=== PATIENT | female | born 1950 | race Caucasian/White ===

== ENCOUNTER 2016-10-30 15:22 | Inpatient (IN) | payer BC ==
[~2016-10-30] VITALS: Ht 162.6 cm; Wt 80.5 kg
[2016-10-30] VITALS (17 sets, daily range): BP systolic 97–240; BP diastolic 50–127; PULSE 48–81; RESP 16–20; TEMP 97.7–97.9; O2SAT 92–96
[2016-10-30] MEDS ORDERED: ASPIRIN 81 MG CHEW TAB PO ONE (16:15)
[2016-10-30] MEDS ORDERED: NITROGLYCERIN 2% OINT 1 GM PACKET TOP ONE (16:15)
[2016-10-30] MEDS ORDERED: SODIUM CHLORIDE 0.9% FLUSH 5 ML FLUSH IVF PRN (16:15)
--- NOTE | 2016-10-30 16:15 | PD ---
HPI Chief Complaint: Cardiac Complaint Time Seen by Provider: 16:10 Travel History International Travel<30 days: No Contact w/Intl Traveler<30days: No Traveled to known affect area: No History of Present Illness HPI 66-year-old female coming in with one week history of intermittent anterior chest discomfort and aching in both elbows which is coming on over the past 2 weeks. Patient denies relationship to exertion or food. Patient is noted to have very high blood pressure at this time. She denies headache, fever , cough, shortness of breath, but has had intermittent nausea but no vomiting or diarrhea. Patient has no cardiac history. Patient has taken blood pressure medications in the past but not for many years. Patient is visiting from [place]. Patient currently is pain free at time of exam. Patient still has her gallbladder, and has had some intermittent back pain in the last 24 hours. Patient has no known drug allergies. PFSH Past Medical History Cardiovascular Problems: Yes (HTN) Hypertension: Yes Tetanus Vaccination: > 5 Years Influenza Vaccination: No ?: Not Past Surgical History Other Surgery: Yes (melanoma removed to back) Social History Alcohol Use: No Tobacco Use: No Substance Use: No Allergies-Medications (Allergen,Severity, Reaction): Coded Allergies: No Known Allergies (Unverified , 10/30/16) Reported Meds & Prescriptions Reported Meds & Active Scripts Active No Active Prescriptions or Reported Medications Review of Systems Except as stated in HPI: all other systems reviewed are Neg General / Constitutional: No: Fever Eyes: No: Visual changes HENT: No: Headaches Cardiovascular: Positive: Chest Pain or Discomfort, No: Palpitations, Irregular Rhythm, Tachycardia, Diaphoresis, Syncope, Dyspnea on exertion (see history present illness.), Edema Respiratory: No: Cough, Shortness of Breath Gastrointestinal: Positive: Nausea, No: Vomiting, Diarrhea, Abdominal Pain Genitourinary: No: Dysuria Musculoskeletal: No: Pain Skin: No Rash Neurologic: No: Weakness Psychiatric: No: Depression Endocrine: No: Polydipsia Hematologic/Lymphatic: No: Easy Bruising Physical Exam Narrative GENERAL: Patient appears in no acute distress. She is talkative and pleasant. SKIN: Warm and dry. Normal color. Normal turgor. No diaphoresis. HEAD: Atraumatic. Normocephalic. EYES: Pupils equal and round. No scleral icterus. No injection or drainage. ENT: No nasal bleeding or discharge. Mucous membranes pink and moist. NECK: Trachea midline. No JVD. Neck is supple nontender. CARDIOVASCULAR: Regular rate and rhythm. No murmurs gallops or rubs appreciated. RESPIRATORY: No accessory muscle use. Clear to auscultation. Breath sounds equal bilaterally. GASTROINTESTINAL: Abdomen soft, non-tender, nondistended. Hepatic and splenic margins not palpable. MUSCULOSKELETAL: Extremities without clubbing, cyanosis, or edema. No obvious deformities. NEUROLOGICAL: Awake and alert. No obvious cranial nerve deficits. Motor grossly within normal limits. Five out of 5 muscle strength in the arms and legs. Normal speech. PSYCHIATRIC: Appropriate mood and affect; insight and judgment normal. Data Data Last Documented VS Vital Signs Date Time Temp Pulse Resp B/P Pulse Ox O2 Delivery O2 Flow Rate FiO2 10/30/16 18:00 60 19 198/75 95 Room Air 10/30/16 15:29 97.9 Orders Electrocardiogram (10/30/16 15:31) Complete Blood Count With Diff (10/30/16 15:31) Ckmb (Isoenzyme) Profile (10/30/16 15:31) Troponin I (10/30/16 15:31) Chest, Single Ap (10/30/16 15:31) Iv Access Insert/Monitor (10/30/16 15:31) Ecg Monitoring (10/30/16 15:31) Oxygen Administration (10/30/16 15:31) Oximetry (10/30/16 15:31) Bilateral Bp Monitoring (10/30/16 16:08) Aspirin Chew (Aspirin Chew) (10/30/16 16:15) Nitroglycerin 2% Oint (Nitroglycerin 2% (10/30/16 16:15) Sodium Chloride 0.9% Flush (Ns Flush) (10/30/16 16:15) Metoprolol Tartrate Inj (Lopressor Inj) (10/30/16 16:15) Comprehensive Metabolic Panel (10/30/16 16:10) Lipase (10/30/16 16:10) CKMB (10/30/16 16:10) CKMB% (10/30/16 16:10) Nitroglycerin-Dextrose Inj (Nitroglyceri (10/30/16 17:15) Potassium Chlor 20 Meq Premix (Kcl 20 Me (2/16/17 17:45) Admit Order (Ed Use Only) (10/30/16 18:01) Labs Laboratory Tests Test 10/30/16 16:10 White Blood Count 6.9 TH/MM3 Red Blood Count 5.10 MIL/MM3 Hemoglobin 12.5 GM/DL Hematocrit 38.4 % Mean Corpuscular Volume 75.4 FL Mean Corpuscular Hemoglobin 24.5 PG Mean Corpuscular Hemoglobin 32.6 % Concent Red Cell Distribution Width 16.3 % Platelet Count 210 TH/MM3 Mean Platelet Volume 10.3 FL Neutrophils (%) (Auto) 64.6 % Lymphocytes (%) (Auto) 24.0 % Monocytes (%) (Auto) 8.5 % Eosinophils (%) (Auto) 2.2 % Basophils (%) (Auto) 0.7 % Neutrophils # (Auto) 4.5 TH/MM3 Lymphocytes # (Auto) 1.7 TH/MM3 Monocytes # (Auto) 0.6 TH/MM3 Eosinophils # (Auto) 0.2 TH/MM3 Basophils # (Auto) 0.0 TH/MM3 CBC Comment AUTO DIFF Differential Comment AUTO DIFF CONFIRMED Platelet Estimate NORMAL Platelet Morphology Comment NORMAL Sodium Level 137 MEQ/L Potassium Level 3.2 MEQ/L Chloride Level 101 MEQ/L Carbon Dioxide Level 26.1 MEQ/L Anion Gap 10 MEQ/L Blood Urea Nitrogen 15 MG/DL Creatinine 0.87 MG/DL Estimat Glomerular Filtration 66 ML/MIN Rate Random Glucose 119 MG/DL Calcium Level 9.2 MG/DL Total Bilirubin 0.3 MG/DL Aspartate Amino Transf 20 U/L (AST/SGOT) Alanine Aminotransferase 24 U/L (ALT/SGPT) Alkaline Phosphatase 127 U/L Total Creatine Kinase 164 U/L Creatine Kinase MB 3.0 NG/ML Troponin I 0.27 NG/ML Total Protein 7.4 GM/DL Albumin 3.6 GM/DL Lipase 249 U/L [facility] Medical Decision Making Medical Screen Exam Complete: Yes Emergency Medical Condition: Yes Differential Diagnosis ACS. Atypical chest pain. Hypertensive crisis. Pancreatitis. Gallbladder disease. Narrative Course Patient is medically stable at time of exam. Patient's blood pressure is noted to be 234/127. EKG shows incomplete right branch bundle branch block, left ventricular hypertrophy, ST changes consistent with possible inferior myocardial infarction which appears old. This is reviewed with Dr. Shabazz. Labs ordered including CMP, CBC, cardiac labs per protocol, and lipase. IV access is obtained patient is given metoprolol 5 mg every 15 minutes 3. One-inch of 2% nitroglycerin paste is placed on the patient topically. 1 324 mg aspirin is given to the patient by mouth. Labs come back showing a normal CBC. CMP shows normal sodium, potassium 3.2, normal BUN/creatinine, random glucose is 119, alkaline phosphatase is elevated at 127. Patient is a positive troponin at 0.27. Lipase is unremarkable at 249. Patient is discussed with Dr. Porras, who sees the patient. She recommends no more metoprolol due to the patient's heart rate, and starting her on a nitroglycerin drip for her blood pressure which remains in the 200s over 100. The patient remains pain free at this time. 1715 hrs. call was placed to the hospitalist to discuss the patient. 1720 hrs. patient was discussed with Dr. Carter who recommended the patient be brought in under the metropolitan editor based on the patient's blood pressure readings and positive troponin. 1720 hrs. call was placed to the metropolitan editor to discuss the patient for admission. 1740 hrs. patient is on nitroglycerin drip, and blood pressure is 212/85. Pulse is 52 bpm. 1755 hrs. patient was discussed with Dr. Wang, the metropolitan editor who agreed to admit the patient to the ICU. She recommended calling the staff trainer to discuss the patient as well as well as a heparin drip. [address] Hill discussed the patient with Dr. Jones who recommended starting heparin drip and he would see the patient in the morning. Admission order was placed. Diagnosis Primary Impression: Elevated troponin level Additional Impression: Hypertension Qualified Code: I10 - Essential hypertension Admitting Information Admitting Physician Requests: Admit Scripts No Active Prescriptions or Reported Meds Condition: Stable Noé Mireles Oct 30, 2016 16:15
[2016-10-30] MEDS: METOPROLOL TARTRATE 5 MG/5 ML VIAL IVS SCH ×3 (16:16→16:38)
[2016-10-30 16:35] LABS: AUTOMATED NEUTROPHIL # 4.5 TH/MM3 (1.8-7.7); BASOPHIL % 0.7 % (0.0-2.0); EOSINOPHIL # 0.2 TH/MM3 (0-0.4); EOSINOPHIL % 2.2 % (0.0-4.0); HEMATOCRIT 38.4 % (35.0-46.0); LYMPHOCYTE # 1.7 TH/MM3 (1.0-4.8); MEAN CELL VOLUME 75.4 FL (80.0-100.0); MEAN CORPUSCULAR HEMOGLOBIN 24.5 PG (27.0-34.0); MEAN CORPUSCULAR HGB CONC 32.6 % (32.0-36.0); MONO % 8.5 % (0.0-8.0); NEUT % 64.6 % (16.0-70.0); PLATELET COUNT 210 TH/MM3 (150-450); RED CELL DISTRIBUTION WIDTH 16.3 % (11.6-17.2); WHITE BLOOD COUNT 6.9 TH/MM3 (4.0-11.0)
[2016-10-30 16:42] LABS: HEMO FLAGS AUTO DIFF
[2016-10-30 16:55] LABS: ANION GAP 10 MEQ/L (5-15); AST (GOT) 20 U/L (15-37); BICARBONATE 26.1 MEQ/L (21.0-32.0); BLOOD UREA NITROGEN 15 MG/DL (7-18); CHLORIDE 101 MEQ/L (98-107); GLOMERULAR FILTRATION RATE 66 ML/MIN (>89); POTASSIUM 3.2 MEQ/L (3.5-5.1); SODIUM (NA) 137 MEQ/L (136-145)
[2016-10-30 16:59] LABS: ALKALINE PHOSPHATASE 127 U/L (45-117); ALT (GPT) 24 U/L (10-53); CREATINE KINASE 164 U/L (26-192); TOTAL BILIRUBIN ADULT 0.3 MG/DL (0.2-1.0)
[2016-10-30 17:09] LABS: PLATELET ESTIMATE SMEAR NORMAL (NORMAL); PLATELET MORPHOLOGY NORMAL (NORMAL); SCAN/DIFF AUTO DIFF CONFIRMED
--- NOTE | 2016-10-30 17:10 | RADRPT ---
EXAM DATE/TIME: 10/30/2016 16:43 [facility] COMPARISON: No previous studies available for comparison. INDICATIONS : Chest pains for one week. MEDICAL HISTORY : Hypertension. SURGICAL HISTORY : None. ENCOUNTER: Initial ACUITY: 1 week PAIN SCORE: 6/10 LOCATION: Bilateral upper chest area. FINDINGS: A single view of the chest demonstrates cardiomegaly with minimal basilar opacity likely atelectasis and scarring. No significant effusion. No pneumothorax. Suspected hiatal hernia present. CONCLUSION: 1. Cardiomegaly with linear scarring or atelectasis at the lung bases. Hiatal hernia. Reginaldo Jones MD on October 30, 2016 at 17:07 Board Certified Radiologist. This report was verified electronically.
[2016-10-30] MEDS ORDERED: NITROGLYCERIN-DEXTROSE INJ 250 ML IV ONE (17:15)
[2016-10-30] MEDS ORDERED: POTASSIUM CHLOR 20 MEQ PREMIX 100 ML IV ONE (17:45)
[2016-10-30] MEDS ORDERED: HEPARIN-D5W INJ 250 ML IV SCH ×2 (18:15→21:15)
[2016-10-30 18:37] LABS: APTT (PATIENT) 25.1 SEC (24.3-30.1); PROTHROMBIN TIME - PATIENT 10.5 SEC (9.8-11.6)
--- NOTE | 2016-10-30 18:39 | PD ---
Physical Exam Date Seen by Provider: Oct 30, 2016 Time Seen by Provider: 17:30 Narrative I, Dr. Schultz, have reviewed the advance practice practitioner's documentation and am in agreement, met with the patient face to face, made the diagnosis, and the medical decision making was done by me. *My assessment and Findings: Patient seen and evaluated with PA, please see PA note for further details. She is a 66-year-old lady from [place], has history of hypertension but not compliant with blood pressure medications, and has been having intermittent chest pains for several weeks, but none currently. She is here because of intermittent chest pains. Her blood pressure is fairly elevated on initial evaluation with a systolic of 240 and a diastolic 110. She denies any other issues. GENERAL: Well-nourished, well-developed pleasant elderly white female patient in no acute distress. Awake and oriented 3. SKIN: Warm and dry. HEAD: Normocephalic. EYES: No scleral icterus. No injection or drainage. NECK: Supple, trachea midline. CARDIOVASCULAR: Regular rate and rhythm without murmurs, gallops, or rubs. Pulses are present and equal bilaterally. RESPIRATORY: Breath sounds equal bilaterally. No accessory muscle use. GASTROINTESTINAL: Abdomen soft, non-tender, nondistended. MUSCULOSKELETAL: No cyanosis, or edema. BACK: Nontender without obvious deformity. No CVA tenderness. EKG shows NSR, no ST elevation or depression, and no arrhythmias. T-wave inversions in 1 and aVL. Laboratory Tests Test 10/30/16 16:10 Mean Corpuscular Volume 75.4 FL (80.0-100.0) Mean Corpuscular Hemoglobin 24.5 PG (27.0-34.0) Monocytes (%) (Auto) 8.5 % (0.0-8.0) Potassium Level 3.2 MEQ/L (3.5-5.1) Estimat Glomerular Filtration 66 ML/MIN (>89) Rate Random Glucose 119 MG/DL (74-106) Alkaline Phosphatase 127 U/L (45-117) Troponin I 0.27 NG/ML (0.02-0.05) Last 24 hours Impressions Chest X-Ray 10/30/16 5421 Signed Impressions: Service Date/Time: October 16:43 - CONCLUSION: 1. Cardiomegaly with linear scarring or atelectasis at the lung bases. Hiatal hernia. Reginaldo Jones MD Chest x-rays unremarkable. Patient was initiated on metoprolol initially with mild improvement in blood pressure. Aspirin was given in the ER. Her troponins are elevated. And patient was placed on nitroglycerin drip for blood pressure. Heparin was added. Case was discussed with Dr. Wang for admission. She would like us to consult cardiology as well. Case was then discussed with Dr. Jones of cardiology for admission. He states that he will see the patient on consult tomorrow. Patient admitted to ICU. Aggregate critical care time was 25 minutes. Time to perform other separately billable procedures was not included in the critical care time. My time did not include minutes spent treating any other patients simultaneously or on activities that did not directly contribute to the patient's treatment. The services I provided to this patient were to treat and/or prevent clinically significant deterioration that could result in: Worsening hypertension, hypertensive emergency, acute CVA, ICH, I provided critical care services requiring my management, as noted below: Chart data review, documentation time, medication orders and management, vital sign assessments/reviewing monitor data, ordering and reviewing lab tests, ordering and interpreting/reviewing x-rays and diagnostic studies, care of the patient and discussion of the patient with the admitting physicians. Data Data Last Documented VS Vital Signs Date Time Temp Pulse Resp B/P Pulse Ox O2 Delivery O2 Flow Rate FiO2 10/30/16 18:00 60 19 198/75 95 Room Air 10/30/16 15:29 97.9 Orders Electrocardiogram (10/30/16 15:31) Complete Blood Count With Diff (10/30/16 15:31) Ckmb (Isoenzyme) Profile (10/30/16 15:31) Troponin I (10/30/16 15:31) Chest, Single Ap (10/30/16 15:31) Iv Access Insert/Monitor (10/30/16 15:31) Ecg Monitoring (10/30/16 15:31) Oxygen Administration (10/30/16 15:31) Oximetry (10/30/16 15:31) Bilateral Bp Monitoring (10/30/16 16:08) Aspirin Chew (Aspirin Chew) (10/30/16 16:15) Nitroglycerin 2% Oint (Nitroglycerin 2% (10/30/16 16:15) Sodium Chloride 0.9% Flush (Ns Flush) (10/30/16 16:15) Metoprolol Tartrate Inj (Lopressor Inj) (10/30/16 16:15) Comprehensive Metabolic Panel (10/30/16 16:10) Lipase (10/30/16 16:10) CKMB (10/30/16 16:10) CKMB% (10/30/16 16:10) Nitroglycerin-Dextrose Inj (Nitroglyceri (10/30/16 17:15) Potassium Chlor 20 Meq Premix (Kcl 20 Me (10/30/16 17:45) Admit Order (Ed Use Only) (10/30/16 18:01) Labs Laboratory Tests Test 10/30/16 16:10 White Blood Count 6.9 TH/MM3 Red Blood Count 5.10 MIL/MM3 Hemoglobin 12.5 GM/DL Hematocrit 38.4 % Mean Corpuscular Volume 75.4 FL Mean Corpuscular Hemoglobin 24.5 PG Mean Corpuscular Hemoglobin 32.6 % Concent Red Cell Distribution Width 16.3 % Platelet Count 210 TH/MM3 Mean Platelet Volume 10.3 FL Neutrophils (%) (Auto) 64.6 % Lymphocytes (%) (Auto) 24.0 % Monocytes (%) (Auto) 8.5 % Eosinophils (%) (Auto) 2.2 % Basophils (%) (Auto) 0.7 % Neutrophils # (Auto) 4.5 TH/MM3 Lymphocytes # (Auto) 1.7 TH/MM3 Monocytes # (Auto) 0.6 TH/MM3 Eosinophils # (Auto) 0.2 TH/MM3 Basophils # (Auto) 0.0 TH/MM3 CBC Comment AUTO DIFF Differential Comment AUTO DIFF CONFIRMED Platelet Estimate NORMAL Platelet Morphology Comment NORMAL Sodium Level 137 MEQ/L Potassium Level 3.2 MEQ/L Chloride Level 101 MEQ/L Carbon Dioxide Level 26.1 MEQ/L Anion Gap 10 MEQ/L Blood Urea Nitrogen 15 MG/DL Creatinine 0.87 MG/DL Estimat Glomerular Filtration 66 ML/MIN Rate Random Glucose 119 MG/DL Calcium Level 9.2 MG/DL Total Bilirubin 0.3 MG/DL Aspartate Amino Transf 20 U/L (AST/SGOT) Alanine Aminotransferase 24 U/L (ALT/SGPT) Alkaline Phosphatase 127 U/L Total Creatine Kinase 164 U/L Creatine Kinase MB 3.0 NG/ML Troponin I 0.27 NG/ML Total Protein 7.4 GM/DL Albumin 3.6 GM/DL Lipase 249 U/L [facility] Medical Record Reviewed: Yes Supervised Visit with VANDANA: Yes Differential Diagnosis ACS versus ST elevation SC versus non-ST elevation SC versus hypertensive emergency versus dysrhythmias versus acute renal failure Diagnosis Primary Impression: Elevated troponin level Additional Impression: Hypertension Qualified Code: I10 - Essential hypertension Admitting Information Admitting Physician Requests: Admit Scripts No Active Prescriptions or Reported Meds Condition: Stable Radha Schultz MD Oct 30, 2016 18:39
[2016-10-30] MEDS ORDERED: MAGNESIUM OXIDE 400 MG TAB PO PRN (19:15)
[2016-10-30] MEDS ORDERED: POTASSIUM CHLOR 40 MEQ PREMIX 100 ML IV PRN ×2 (19:15)
[2016-10-30] MEDS ORDERED: POTASSIUM PHOSPHATE MONOBASIC 500 MG TAB PO PRN (19:15)
[2016-10-30] MEDS ORDERED: POTASSIUM PHOSPHATE MONOBASIC 500 MG TAB PO/TUBE PRN (19:15)
[2016-10-30] MEDS ORDERED: SODIUM PHOSPHATE INJ 30 MMOL in SODIUM CHLOR 0.9% 250 ML INJ 240 ML IV PRN (19:15)
[2016-10-30] MEDS ORDERED: POTASSIUM CHLOR 20 MEQ PREMIX 100 ML IV PRN ×2 (19:15)
[2016-10-30] MEDS ORDERED: MAGNESIUM SULFATE INJ 4 GM in SODIUM CHLORIDE 0.9% INJ 92 ML IV PRN (19:15)
[2016-10-30] MEDS ORDERED: POTASSIUM CL 40 MEQ/30 ML LIQ UDC PO/TUBE PRN ×2 (19:15)
[2016-10-30] MEDS ORDERED: MAGNESIUM SULFATE INJ 2 GM in SODIUM CHLORIDE 0.9% INJ 96 ML IV PRN (19:15)
[2016-10-30] MEDS ORDERED: POTASSIUM PHOSPHATE INJ 30 MMOL in SODIUM CHLOR 0.9% 250 ML INJ 250 ML IV PRN (19:15)
--- NOTE | 2016-10-30 19:16 | HHI.HP ---
HPI Service Critical Care Medicine Primary Care Physician Unknown Admission Diagnosis Elevated Troponin/Typertnesive Crisis Diagnosis: Travel History International Travel<30 Days: No Contact w/Intl Traveler <30 Da: No Traveled to Known Affected Are: No History of Present Illness 66 yo female who is vacationing in [place] from [place]. She has a PMH history of hypertension but states that she discontinued meds on her own a few years ago. She presents to [facility] ED with chest pain that has been intermittent since 10/22/16 when she states she was laying down in a hotel room in [place] and felt pain in her chest, radiating to bilateral elbows and associated palpitations. She stated it felt better when she sat up. She denies any shortness of breath. She states this improved after she took some Advil. She has continued to have intermittent episodes of chest pain that got more severe last night and was 8/10 squeezing pain that radiated intrascapular and down to her left flank. She denies numbness, tingling, paresthesias, abdominal pain. She has had some occasional diaphoresis. She denies nausea or vomiting. She does not feel that symptoms are particularly exertional as she was able to walk up to the [facility] without symptoms. She has also been cycling without any increase symptoms, although she states she " takes it slower than usual". She felt like it may be getting worse with eating. She has tried taking advil and tums and thought that advil helped. She is a former smoker. States she has never had her cholesterol checked. She denies prior cardiac history stating that she has never had a stress test or cardiac catheterization. No family history of coronary artery disease. She reports prior history of heavy EtOH use. She was previously on a single agent antihypertensive (unknown med) but discontinued on her own a couple of years ago after she had lost some weight. She presents with BP 240/110 with heart rate 70s-80s. She was given Metoprolol 10 mg IV and heart rate was in high 40s to 50s. She was placed on Nitropaste. Currently denies chest pain. Troponin is 0.27 with negative MB fraction. EKG shows LVH, no ST elevation, incomplete RBBB. Past Family Social History Allergies: Coded Allergies: No Known Allergies (Unverified , 10/30/16) Past Medical History Hypertension Obesity History of Heavy alcohol use Former smoker She states she had a "whole body scan" in 2010 and was told "her heart was fine " she states she was told she had hepatomegaly She denies prior history of cardiac stress or cardiac catheter Past Surgical History She had a melanoma resection in 2009 Reported Medications Has been taking occasional Advil and Tums Family History Her mother is age 84 and is living without prior history of coronary disease. She does have a heart murmur Her father has no cardiac history Social History She has 2 children that were delivered vaginally She quit smoking when she was in her 30s She states she used to drink rather heavily for several years drinking about 4- 6 alcoholic beverages per day. She denies prior history of DVTs. States she hasn't had a drink in a few years She is She resides in [place] and she and her drove down here for vacation Physical Exam Vital Signs Vital Signs Date Time Temp Pulse Resp B/P Pulse Ox O2 Delivery O2 Flow Rate FiO2 10/30/16 18:30 53 20 182/74 94 Room Air 10/30/16 18:00 60 19 198/75 95 Room Air 10/30/16 17:30 59 212/85 10/30/16 17:00 58 19 210/85 94 Room Air 10/30/16 16:35 64 17 216/110 94 Room Air 10/30/16 16:06 70 96 Room Air 10/30/16 16:03 96 10/30/16 16:00 81 18 234/127 95 Room Air 10/30/16 15:55 77 18 240/110 96 Room Air 10/30/16 15:29 97.9 72 20 92 Room Air Physical Exam Pulse 52 blood pressure 97/50 sats 93% GENERAL: Well-nourished, well-developed patient who is alert and interactive in ED [facility]. SKIN: Warm and dry. HEAD: Atraumatic. Normocephalic. EYES: Pupils equal and round, 2 mm reactive. No scleral icterus. ENT: No nasal bleeding or discharge. Mucous membranes pink and moist. NECK: Trachea midline. No JVD. CARDIOVASCULAR: , sinus rhythm on the monitor with rate in the 50-60s. No murmurs rubs or gallops. RESPIRATORY: Breathing comfortably without accessory muscle use. Clear to auscultation bilaterally. No wheezes Rales or rhonchi. GASTROINTESTINAL: Abdomen soft, non-tender, nondistended. Bowel sounds present MUSCULOSKELETAL: Extremities without clubbing, cyanosis, or edema. She has palpable bounding pulses in all extremities. Extremities are warm NEUROLOGICAL: Awake and alert. No obvious cranial nerve deficits. Normal speech. Oriented 3. Strength 5 out of 5 in all extremities. Laboratory Laboratory Tests Test 10/30/16 10/30/16 16:10 16:30 White Blood Count 6.9 Red Blood Count 5.10 Hemoglobin 12.5 Hematocrit 38.4 Mean Corpuscular Volume 75.4 Mean Corpuscular Hemoglobin 24.5 Mean Corpuscular Hemoglobin 32.6 Concent Red Cell Distribution Width 16.3 Platelet Count 210 Mean Platelet Volume 10.3 Neutrophils (%) (Auto) 64.6 Lymphocytes (%) (Auto) 24.0 Monocytes (%) (Auto) 8.5 Eosinophils (%) (Auto) 2.2 Basophils (%) (Auto) 0.7 Neutrophils # (Auto) 4.5 Lymphocytes # (Auto) 1.7 Monocytes # (Auto) 0.6 Eosinophils # (Auto) 0.2 Basophils # (Auto) 0.0 CBC Comment AUTO DIFF Differential Comment AUTO DIFF CONFIRMED Platelet Estimate NORMAL Platelet Morphology Comment NORMAL Sodium Level 137 Potassium Level 3.2 Chloride Level 101 Carbon Dioxide Level 26.1 Anion Gap 10 Blood Urea Nitrogen 15 Creatinine 0.87 Estimat Glomerular Filtration 66 Rate Random Glucose 119 Calcium Level 9.2 Total Bilirubin 0.3 Aspartate Amino Transf 20 (AST/SGOT) Alanine Aminotransferase 24 (ALT/SGPT) Alkaline Phosphatase 127 Total Creatine Kinase 164 Creatine Kinase MB 3.0 Troponin I 0.27 Total Protein 7.4 Albumin 3.6 Lipase 249 Prothrombin Time 10.5 Prothromb Time International 1.0 Ratio Activated Partial 25.1 Thromboplast Time Result Diagram: 10/30/16 1610 10/30/16 1610 Assessment and Plan Assessment and Plan NEURO: History of heavy alcohol use She denies any EtOH use in several years. Morphine prn pain RESP: Former history of tobacco abuse Nasal cannula if needed to maintain sats greater than 92% Albuterol every 2 hours when necessary wheezing CV: Malignant hypertension Elevated troponin Chest pain Chest pain and troponin elevation likely related to hypertensive urgency. Metoprolol 5 mg IV q6 hours with hold orders for heart rate <60. NTG drip to target BP 140/90 provided that UOP remains adequate. Serial cardiac markers and EKG. Follow-up Echo. She has received aspirin. Check lipid profile. Pravastatin 20 mg po daily in morning. Followup CTA to r/o dissection given 8/10 pain radiating to back and flank; as well as nonexertional symptoms. Start heparin if CTA negative. Cardiology consulted, Dr. Jones to see. GI: Hiatal hernia H/o hepatomegaly Nothing by mouth until cardiology plan determined. Protonix 40 mg IV daily FEN/RENAL: Hypokalemia Monitor intake and output while aggressively lowering BP to ensure maintains UOP. Monitor electrolytes and replace electrolytes as indicated per ICU electrolyte replacement protocol. Replace potassium. ID: UTI U/a with large LE, rare bacteria, 25 WBC. Start levaquin and followup urine culture/sensitivity HEME: h/o melanoma resection from back in 2009 No acute heme/onc issues. Monitor CBC ENDO: Check hemoglobin A1c and TSH PROPH: SCDs for DVT prophylaxis. Initiate heparin if CT angiogram is negative for evidence of dissection. Protonix 40 month grams IV daily for stress ulcer prophylaxis ACCESS: Peripheral IV providing adequate access at this time Patient and her were updated at bedside. CCT 55 minutes exclusive of separately billable procedures Leticia Riley MD Oct 30, 2016 19:16
[2016-10-30] MEDS ORDERED: NITROGLYCERIN-DEXTROSE INJ 250 ML IV SCH (19:45)
[2016-10-30] MEDS ORDERED: IOHEXOL 350 MG/ML 10 ML VIAL (for RAD DIAG) IV ONE (19:59)
[2016-10-30] MEDS ORDERED: CHLORHEXIDINE GLUCONATE 2 % 1 PACK (2 CLOTHS) TOP PRN (20:00)
[2016-10-30] MEDS ORDERED: RESP: ALBUTEROL 2.5 MG/3 ML NEB (PRN) INH (20:00)
[2016-10-30] MEDS ORDERED: MISCELLANEOUS NURSING INFORMATION XX SCH (20:00)
[2016-10-30] MEDS ORDERED: ONDANSETRON HCL 4 MG/2 ML VIAL IV PRN (20:00)
[2016-10-30] MEDS ORDERED: SODIUM CHLORIDE 0.9% FLUSH 5 ML FLUSH IV FLUSH PRN (20:00)
[2016-10-30] MEDS ORDERED: ACETAMINOPHEN 325 MG TAB PO PRN (20:00)
[2016-10-30] MEDS ORDERED: MORPHINE SULFATE 4 MG/ML INJ IV PUSH PRN ×2 (20:15)
[2016-10-30 20:16] LABS: BACTERIA, URINE RARE /hpf; BLOOD, URINE NEG (NEG); GLUCOSE,URINE NEG (NEG); HYALINE CAST, URINE 2 /lpf (RARE); KETONE, URINE NEG (NEG); MUCUS URINE FEW /lpf (OCC); NITRITE,URINE NEG (NEG); PH, URINE 6.5 (5.0-8.5); SQUAMOUS EPITHELIAL CELL URINE 1 /hpf (0-5); URINE COLOR LIGHT-YELLOW (YELLW/STRAW)
[2016-10-30] MEDS: SODIUM CHLORIDE 0.9% FLUSH 5 ML FLUSH IV FLUSH SCH (20:16)
[2016-10-30 20:20] LABS: AMPHETAMINE, URINE NEG (NEG); BARBITURATES, URINE NEG (NEG); COCAINE, URINE NEG (NEG)
[2016-10-30 20:21] LABS: COMMENT (UR) CATH-CULTURE IND; CULTURE IF INDICATED CATH CULTURE IND
[2016-10-30] MEDS: PANTOPRAZOLE SODIUM 40 MG VIAL IV PUSH SCH (20:39)
--- NOTE | 2016-10-30 20:42 | RADRPT ---
EXAM DATE/TIME: 10/30/2016 20:09 [place] COMPARISON: No previous studies available for comparison. INDICATIONS : Intermittent chest discomfort for 2 weeks; evaluate for aortic dissection. IV CONTRAST: 100 cc Omnipaque 350 (iohexol) IV RADIATION DOSE: 17.06 CTDIvol (mGy) MEDICAL HISTORY : Hypertension. SURGICAL HISTORY : None. ENCOUNTER: Initial ACUITY: 2 weeks PAIN SCALE: 3/10 LOCATION: Chest TECHNIQUE: Volumetric scanning was performed using a multi-row detector CT scanner. The data was post processed with a variety of visualization algorithms including full volume maximum intensity pr ojection, multi-planar sliding thin slab reformation, curved planar reformation, and surface renderin g techniques. Using automated exposure control and adjustment of the mA and/or kV according to patie nt size, radiation dose was kept as low as reasonably achievable to obtain optimal diagnostic quality images. FINDINGS: The aorta is intact. There is no dissection. Calcifications are seen at the coronary a rteries. There are scattered calcifications seen throughout the arterial system. No aneurysm is pre sent. There is Bochdalek type hernia seen at the posterior right hemidiaphragm. This is typically an incide ntal finding. There is some mild accompanying atelectasis or consolidation at the right lung base. There is a large hiatal hernia. The liver, spleen, pancreas, adrenal glands and kidneys are grossly normal. There is a 4.9 cm peripherally calcified mass in the right pelvis likely related to a calci fied leiomyoma of the uterus. CONCLUSION: 1. The aorta is intact. Atherosclerotic calcifications are seen throughout the arterial system inclu ding the coronary arteries. 2. 4.9 cm peripherally calcified mass in the right pelvis likely related to a calcified leiomyoma of the uterus. 3. Area of suspected atelectasis or consolidation at the right lung base adjacent to a Bochdalek type hernia. Hi Hong MD on October 30, 2016 at 20:27 Board Certified Radiologist. This report was verified electronically.
[2016-10-30] MEDS: METOPROLOL TARTRATE 5 MG/5 ML VIAL IV PUSH SCH (21:00)
[2016-10-30] MEDS ORDERED: HEPARIN SODIUM - IV 10,000 UNITS/10 ML VIAL IV ONE (21:15)
[2016-10-30] MEDS: LEVOFLOXACIN 750 MG PREMIX INJ 150 ML IV SCH (23:40)
[2016-10-31] VITALS (12 sets, daily range): BP systolic 143–223; BP diastolic 67–98; PULSE 57–83; RESP 10–21; TEMP 97.4–98.2; O2SAT 92–96
[2016-10-31] MEDS ORDERED: HEPARIN SODIUM - IV 10,000 UNITS/10 ML VIAL IV PRN ×4 (00:15→03:15)
[2016-10-31 00:36] LABS: APTT (PATIENT) 41.4 SEC (24.3-30.1); PROTHROMBIN TIME - PATIENT 10.8 SEC (9.8-11.6)
[2016-10-31 00:37] LABS: HEMATOCRIT 37.4 % (35.0-46.0); MEAN CELL VOLUME 76.2 FL (80.0-100.0); MEAN CORPUSCULAR HEMOGLOBIN 24.6 PG (27.0-34.0); MEAN CORPUSCULAR HGB CONC 32.3 % (32.0-36.0); PLATELET COUNT 201 TH/MM3 (150-450); RED BLOOD COUNT 4.91 MIL/MM3 (4.00-5.30); RED CELL DISTRIBUTION WIDTH 16.3 % (11.6-17.2)
[2016-10-31 00:40] LABS: REVIEW FLAG FINAL
[2016-10-31] MEDS: METOPROLOL TARTRATE 5 MG/5 ML VIAL IV PUSH SCH ×2 (03:00→08:31)
[2016-10-31] MEDS: CHLORHEXIDINE GLUCONATE 2 % 1 PACK (2 CLOTHS) TOP SCH ×2 (04:00→20:34)
[2016-10-31 04:37] LABS: APTT (PATIENT) 35.2 SEC (24.3-30.1)
[2016-10-31 04:39] LABS: AUTOMATED NEUTROPHIL # 4.4 TH/MM3 (1.8-7.7); BASOPHIL % 0.6 % (0.0-2.0); EOSINOPHIL # 0.1 TH/MM3 (0-0.4); EOSINOPHIL % 1.8 % (0.0-4.0); HEMATOCRIT 35.1 % (35.0-46.0); LYMPH % 26.7 % (9.0-44.0); LYMPHOCYTE # 1.8 TH/MM3 (1.0-4.8); MEAN CELL VOLUME 75.6 FL (80.0-100.0); MEAN CORPUSCULAR HEMOGLOBIN 24.7 PG (27.0-34.0); MEAN CORPUSCULAR HGB CONC 32.6 % (32.0-36.0); MONO % 6.6 % (0.0-8.0); NEUT % 64.3 % (16.0-70.0); PLATELET COUNT 180 TH/MM3 (150-450); RED BLOOD COUNT 4.65 MIL/MM3 (4.00-5.30); RED CELL DISTRIBUTION WIDTH 16.2 % (11.6-17.2); WHITE BLOOD COUNT 6.9 TH/MM3 (4.0-11.0)
[2016-10-31 04:43] LABS: HEMO FLAGS AUTO DIFF
[2016-10-31 04:45] LABS: BICARBONATE 25.9 MEQ/L (21.0-32.0); POTASSIUM 3.3 MEQ/L (3.5-5.1)
[2016-10-31 04:49] LABS: HDL CHOLESTEROL 47.2 MG/DL (40.0-60.0)
[2016-10-31 05:29] LABS: OVALOCYTES 1+ (NORMAL); SCAN/DIFF AUTO DIFF CONFIRMED
[2016-10-31] MEDS: amLODIPine BESYLATE 5 MG TAB PO SCH (08:30)
[2016-10-31] MEDS: SODIUM CHLORIDE 0.9% FLUSH 5 ML FLUSH IV FLUSH SCH ×2 (08:30→19:50)
[2016-10-31] MEDS ORDERED: PRAVASTATIN SOD 20 MG TAB PO SCH (09:00)
[2016-10-31] MEDS ORDERED: PANTOPRAZOLE SODIUM 40 MG VIAL IV SCH (09:00)
--- NOTE | 2016-10-31 09:50 | HHI.CCPN ---
Subjective Remarks/Hospital Course 66 yo female who is vacationing in [place] from [place]. She has a H history of hypertension but states that she discontinued meds on her own a few years ago. She [place] [facility] with chest pain that has been intermittent since 10/22/16 when she states she was laying down in a hotel room in [place] and felt pain in her chest, radiating to bilateral elbows and associated palpitations. She stated it felt better when she sat up. She denies any shortness of breath. She states this improved after she took some Advil. She has continued to have intermittent episodes of chest pain that got more severe last night and was 8/10 squeezing pain that radiated intrascapular and down to her left flank. She denies numbness, tingling, paresthesias, abdominal pain. She has had some occasional diaphoresis. She denies nausea or vomiting. She does not feel that symptoms are particularly exertional as she was able to walk up to the [facility] without symptoms. She has also been cycling without any increase symptoms, although she states she " takes it slower than usual". She felt like it may be getting worse with eating. She has tried taking advil and tums and thought that advil helped. She is a former smoker. States she has never had her cholesterol checked. She denies prior cardiac history stating that she has never had a stress test or cardiac catheterization. No family history of coronary artery disease. She reports prior history of heavy EtOH use. She was previously on a single agent antihypertensive (unknown med) but discontinued on her own a couple of years ago after she had lost some weight. She presents with BP 240/110 with heart rate 70s-80s. She was given Metoprolol 10 mg IV and heart rate was in high 40s to 50s. She was placed on Nitropaste. Currently denies chest pain. Troponin is 0.27 with negative MB fraction. EKG shows LVH, no ST elevation, incomplete RBBB. 10/31: Patient is awake and alert on Heparin and Nitro drips. Afebrile. Objective Vital Signs Date Time Temp Pulse Resp B/P Pulse Ox O2 Delivery O2 Flow Rate FiO2 10/31/16 06:00 65 10/31/16 04:00 97.9 16 143/67 92 10/30/16 21:51 Room Air Result Diagram: 10/31/16 0356 10/31/16 0356 Other Results Laboratory Tests Test 10/30/16 10/30/16 10/30/16 10/30/16 16:10 16:30 20:00 22:20 White Blood Count 6.9 TH/MM3 Red Blood Count 5.10 MIL/MM3 Hemoglobin 12.5 GM/DL Hematocrit 38.4 % Mean Corpuscular Volume 75.4 FL Mean Corpuscular Hemoglobin 24.5 PG Mean Corpuscular Hemoglobin 32.6 % Concent Red Cell Distribution Width 16.3 % Platelet Count 210 TH/MM3 Mean Platelet Volume 10.3 FL Neutrophils (%) (Auto) 64.6 % Lymphocytes (%) (Auto) 24.0 % Monocytes (%) (Auto) 8.5 % Eosinophils (%) (Auto) 2.2 % Basophils (%) (Auto) 0.7 % Neutrophils # (Auto) 4.5 TH/MM3 Lymphocytes # (Auto) 1.7 TH/MM3 Monocytes # (Auto) 0.6 TH/MM3 Eosinophils # (Auto) 0.2 TH/MM3 Basophils # (Auto) 0.0 TH/MM3 CBC Comment AUTO DIFF Differential Comment AUTO DIFF CONFIRMED Platelet Estimate NORMAL Platelet Morphology Comment NORMAL Sodium Level 137 MEQ/L Potassium Level 3.2 MEQ/L Chloride Level 101 MEQ/L Carbon Dioxide Level 26.1 MEQ/L Anion Gap 10 MEQ/L Blood Urea Nitrogen 15 MG/DL Creatinine 0.87 MG/DL Estimat Glomerular Filtration 66 ML/MIN Rate Random Glucose 119 MG/DL Calcium Level 9.2 MG/DL Phosphorus Level 4.5 MG/DL Total Bilirubin 0.3 MG/DL Aspartate Amino Transf 20 U/L (AST/SGOT) Alanine Aminotransferase 24 U/L (ALT/SGPT) Alkaline Phosphatase 127 U/L Total Creatine Kinase 164 U/L Creatine Kinase MB 3.0 NG/ML Troponin I 0.27 NG/ML 0.58 NG/ML B-Type Natriuretic Peptide 157 PG/ML Total Protein 7.4 GM/DL Albumin 3.6 GM/DL Lipase 249 U/L Prothrombin Time 10.5 SEC Prothromb Time International 1.0 RATIO Ratio Activated Partial 25.1 SEC Thromboplast Time Urine Color LIGHT-YELLOW Urine Turbidity CLEAR Urine pH 6.5 Urine Specific Badger 1.008 Urine Protein NEG mg/dL Urine Glucose (UA) NEG mg/dL Urine Ketones NEG mg/dL Urine Occult Blood NEG Urine Nitrite NEG Urine Bilirubin NEG Urine Urobilinogen LESS THAN 2.0 MG/DL Urine Leukocyte Esterase LARGE Urine RBC 2 /hpf Urine WBC 25 /hpf Urine Squamous Epithelial 1 /hpf Cells Urine Bacteria RARE /hpf Urine Hyaline Casts 2 /lpf Urine Mucus FEW /lpf Microscopic Urinalysis Comment CATH-CULTURE IND Urine Opiates Screen NEG Urine Barbiturates Screen NEG Urine Amphetamines Screen NEG Urine Benzodiazepines Screen NEG Urine Cocaine Screen NEG Urine Cannabinoids Screen NEG Thyroid Stimulating Hormone 1.170 uIU/ML 3rd Gen Test 10/30/16 10/30/16 10/31/16 22:30 23:40 03:56 Nasal Screen MRSA (PCR) NEGATIVE White Blood Count 9.0 TH/MM3 6.9 TH/MM3 Red Blood Count 4.91 MIL/MM3 4.65 MIL/MM3 Hemoglobin 12.1 GM/DL 11.5 GM/DL Hematocrit 37.4 % 35.1 % Mean Corpuscular Volume 76.2 FL 75.6 FL Mean Corpuscular Hemoglobin 24.6 PG 24.7 PG Mean Corpuscular Hemoglobin 32.3 % 32.6 % Concent Red Cell Distribution Width 16.3 % 16.2 % Platelet Count 201 TH/MM3 180 TH/MM3 Mean Platelet Volume 10.4 FL 10.2 FL Prothrombin Time 10.8 SEC Prothromb Time International 1.0 RATIO Ratio Activated Partial 41.4 SEC 35.2 SEC Thromboplast Time Neutrophils (%) (Auto) 64.3 % Lymphocytes (%) (Auto) 26.7 % Monocytes (%) (Auto) 6.6 % Eosinophils (%) (Auto) 1.8 % Basophils (%) (Auto) 0.6 % Neutrophils # (Auto) 4.4 TH/MM3 Lymphocytes # (Auto) 1.8 TH/MM3 Monocytes # (Auto) 0.5 TH/MM3 Eosinophils # (Auto) 0.1 TH/MM3 Basophils # (Auto) 0.0 TH/MM3 CBC Comment AUTO DIFF Differential Comment AUTO DIFF CONFIRMED Ovalocytes 1+ Sodium Level 142 MEQ/L Potassium Level 3.3 MEQ/L Chloride Level 107 MEQ/L Carbon Dioxide Level 25.9 MEQ/L Anion Gap 9 MEQ/L Blood Urea Nitrogen 12 MG/DL Creatinine 0.81 MG/DL Estimat Glomerular Filtration 71 ML/MIN Rate Random Glucose 102 MG/DL Calcium Level 8.6 MG/DL Troponin I 1.37 NG/ML Triglycerides Level 154 MG/DL Cholesterol Level 236 MG/DL LDL Cholesterol 158 MG/DL HDL Cholesterol 47.2 MG/DL Cholesterol/HDL Ratio 5.00 RATIO Imaging Last Impressions Chest X-Ray 10/30/16 1531 Signed Impressions: Service Date/Time: October 16:43 - CONCLUSION: 1. Cardiomegaly with linear scarring or atelectasis at the lung bases. Hiatal hernia. Reginaldo Jones MD Aorta CTA 10/30/16 0000 Signed Impressions: Service Date/Time: October 20:09 - CONCLUSION: 1. The aorta is intact. Atherosclerotic calcifications are seen throughout the arterial system including the coronary arteries. 2. 4.9 cm peripherally calcified mass in the right pelvis likely related to a calcified leiomyoma of the uterus. 3. Area of suspected atelectasis or consolidation at the right lung base adjacent to a Bochdalek type hernia. Hi Hong MD Objective Remarks GENERAL: Patient is 66yo lying in be din NAD SKIN: Warm and dry. HEAD: Normocephalic. EYES: No scleral icterus. No injection or drainage. NECK: Supple, trachea midline. No JVD or lymphadenopathy. CARDIOVASCULAR: Regular rate and rhythm without murmurs, gallops, or rubs. RESPIRATORY: Breath sounds equal bilaterally. No accessory muscle use. GASTROINTESTINAL: Abdomen soft, non-tender, nondistended. MUSCULOSKELETAL: No cyanosis, or edema. Neuro: Awake and alert A/P Assessment and Plan NEURO: History of heavy alcohol use She denies any EtOH use in several years. Morphine prn pain Monitor neuro status and avoid sedatives RESP: Former history of tobacco abuse Oxygen PRN to maintain sats greater than 92% Albuterol every 2 hours when necessary wheezing CV: Malignant hypertension Elevated troponin Chest pain CTA chest shoed no dissection Wean off NTG drip target BP 140/90. On Norvasc 5mg daily Serial cardiac markers. for 2D echo to eval LV function s/p cardiac cath which showed significant CAD with an 80% lesion in the obtuse marginal status post Resolute drug-eluting stent Placed on ASA<,Prinivil 5mg daily, Brilinta 90mg BID, Coreg 6.24mg BID, Lipitor GI: Hiatal hernia H/o hepatomegaly Nothing by mouth until cardiology plan determined. Protonix 40 mg IV daily FEN/RENAL: Hypokalemia Monitor renal function, I/O's, electrolytes replacement per protocol. ID: UTI Continue with abx (Levaquin) followup urine culture/sensitivity HEME: h/o melanoma resection from back in 2009 Monitor CBC ENDO: SSI if needed for glycemic control TSH: 1.17 PROPH: DVT prophylaxis- SCD's, on Heparin SQ, off Heparin drip. Protonix 40mg IV daily for stress ulcer prophylaxis ACCESS: Peripheral IV providing adequate access at this time Will sign off and transfer care to [facility] Level 3 Gale Cross MD Oct 31, 2016 09:50
[2016-10-31 10:14] LABS: APTT (PATIENT) 33.6 SEC (24.3-30.1)
[2016-10-31] MEDS ORDERED: HEPARIN-NS/PF INJ 500 ML ONE (10:19)
[2016-10-31] MEDS ORDERED: MIDAZOLAM HCL 2 MG/2 ML VIAL ONE (10:25)
[2016-10-31] MEDS ORDERED: HEPARIN SODIUM - IV 10,000 UNITS/10 ML VIAL ONE (10:26)
[2016-10-31] MEDS ORDERED: VERAPAMIL HCL 5 MG/2 ML VIAL ONE (10:26)
--- NOTE | 2016-10-31 10:27 | MB ---
cc: JASVIR GARCIA DO DATE OF CONSULTATION 10/31/2016 REASON FOR CONSULTATION Elevated troponins/hypertensive emergency. HISTORY OF PRESENT ILLNESS Annalee Baird is a pleasant 66-year-old female who presents to [facility] emergency room on October 30, 2016 due to chest pain. She and her are currently down visiting from [place], [place]. On the way down, they in [place] at their condo. While there, she noticed some mild chest pain that radiated to her bilateral elbows and had some palpitations with it. She sat up and she started feeling better. She took a few Aleve and at that time, the pain went away. [place] continued [place] the [place]. Once reaching [place], they did take a bicycle ride during which she did not get any chest pain. They also climbed the stairs at the [facility] where she did not get chest pain. Starting yesterday, she had a similar type pain and she felt that she should call her primary care physician's office who instructed her that she should come to the emergency room. On arrival, she was found to have a blood pressure of 240/110. Troponin was noted to be mildly elevated at 0.27 increasing to 1.37. She was started on a nitroglycerin drip. She underwent a chest CT to rule out a dissection and once this was negative, she was started on a heparin drip. In seeing her, she states she feels well. No chest pain or shortness of breath at this time. PAST MEDICAL HISTORY 1. Hypertension (previously on medication, but stopped a few years ago). 2. History of heavy alcohol use. 3. Obesity 4. History of tobacco abuse. PAST SURGICAL HISTORY She had a melanoma resection (2009). ALLERGIES NO KNOWN DRUG ALLERGIES. MEDICATIONS Advil as needed. FAMILY HISTORY Mother is [id number] and is living with a prior history of coronary artery disease. SOCIAL HISTORY She has two kids. She quit smoking when she was in her 30s. She used to drink rather heavily for several years, had around four to six alcoholic beverages per day. She states she has not had a drink in a few years. REVIEW OF SYSTEMS 14 systems were reviewed including osteopathic pertinent positives and negatives as above, otherwise negative. PHYSICAL EXAMINATION VITAL SIGNS: Temperature 97.9, heart rate 65, blood pressure 143/67, respirations 16, pulse ox 92% on room air. GENERAL: The patient appears well in no acute distress, alert, awake and oriented x3. Extraocular muscles intact. Mucous membranes moist. NECK: Supple. No JVD at 45 degrees. No carotid bruits heard bilaterally. Carotid upstroke is brisk in nature. HEART: Regular rate and rhythm. Positive first and second heart sounds with no murmurs, gallops or rubs. PMI is difficult to ascertain due to body habitus. LUNGS: Clear to auscultation bilaterally. No wheezes, rales or rhonchi. ABDOMEN: Soft, nontender and nondistended, no organomegaly noted. EXTREMITIES: Show trace edema with mild spider varicosities. Femoral and distal pulses intact bilaterally. NEUROLOGIC: No focal deficits. SKIN: Warm, dry and intact. OSTEOPATHIC: No kyphoscoliosis, lordosis or paraspinal tender points. LABORATORY FINDINGS Hemoglobin 11.5, hematocrit 35.1, platelets 180. Potassium 3.3, BUN 12, creatinine 0.81, troponin 0.27 increasing to 1.37. BMP 157, total cholesterol 236, LDL 158, HDL 47.2, triglycerides 154. Electrocardiogram (October 31, 2016 at 0811) normal sinus rhythm at 69 beats per minute, possible left atrial enlargement, left axis deviation, LVH with secondary ST-T wave changes. IMPRESSION 1. [id number] myocardial infarction. 2. Hypertensive emergency with a blood pressure of 240/110 on arrival 3. Chest pain concerning for possible coronary insufficiency versus due to extensive hypertension. 4. LVH by electrocardiogram. 5. History of heavy alcohol use, although has not used in several years. 6. History of tobacco abuse although she quit in her 30s. 7. Hyperlipidemia. RECOMMENDATIONS 1. Annalee's episodes of chest pain may correlate with hypertensive emergency, as well as the elevation of her troponin, but underlying coronary artery disease cannot be ruled out. I did explain the risks, benefits and alternatives of both medical management versus cardiac catheterization. She is agreeable to undergo cardiac catheterization for coronary visualization. 2. She understands the risks, benefits and alternatives and consents as such. 3. We will further try to control her blood pressure with oral medications and decrease her nitroglycerin drip. 4. We will check a 2-D echo to look at her overall left ventricular function, cardiac structure and possible valvulopathies. 5. Further recommendations will be made after coronary visualization. Thank you for allowing me to see Annalee Baird. If there are any questions, please do not hesitate to call. Jasvir Garcia DO VGP/DJL /9:41 AM /10:06 AM
[2016-10-31] MEDS ORDERED: TICAGRELOR 90 MG TAB PO ONE (11:38)
[2016-10-31] MEDS ORDERED: IOHEXOL 350 MG/ML 100 ML BTL (for Cath Lab) OTHER ONE (11:50)
[2016-10-31] MEDS ORDERED: SODIUM CHLORIDE 0.9% FLUSH 5 ML FLUSH IVF PRN (12:00)
[2016-10-31] MEDS ORDERED: MISC INFORMATION XX ONE (12:00)
[2016-10-31] MEDS: CARVEDILOL 6.25 MG TAB PO SCH ×2 (12:21→19:50)
--- NOTE | 2016-10-31 12:49 | MA ---
cc: JASVIR GARCIA DO DATE: 10/31/2016 PROCEDURE 1. Left heart catheterization. 2. Coronary angiogram. 3. Left ventriculography. 4. Drug-eluting stent (2.25 x 14) to the first obtuse marginal. PREPROCEDURE DIAGNOSIS 1. Non-ST elevation myocardial infarction. 2. Chest pain concerning for coronary insufficiency. POSTPROCEDURE DIAGNOSIS 1. Coronary artery disease status post Resolute drug-eluting stent (2.25 x 14) to the first obtuse marginal. 2. Hypertensive emergency. MEDICATIONS GIVEN 1. Nitroglycerin 200 mcg. 2. Verapamil 2.5 mg. 3. Versed 0.5 mg. 4. Fentanyl 25 mcg. 5. Heparin 9200 units. 6. Brilinta 180 mg. CONTRAST 170 cc. FLUOROSCOPY TIME 16.8 minutes ESTIMATED BLOOD LOSS 10 cc. PROCEDURAL SUMMARY Annalee Baird presented with hypertensive emergency and was found to have an elevated troponin, originally thought to be a type II in nature but underlying coronary artery disease could not be ruled out. I discussed with her and her the risks, benefits and alternatives of undergoing coronary visualization and possible intervention, and they understood and she consented as such. She was brought to the cardiac catheterization lab and prepped in the usual sterile fashion. The right radial artery was accessed using a modified Seldinger technique and placement of a 5/6 Slender sheath. This was easily aspirated and flushed. A JR4 was then advanced over a J-wire to the ascending aorta and this was used to cross the aortic valve with measurement of the left ventricular pressures, LVEDP was 20. This was pulled back across the aortic valve showing no significant gradient of aortic stenosis. Selective angiography of the right coronary artery shows a nondominant vessel with 20-30% in the midportion. The JR4 was then exchanged for a JL3.5 and this was used for selective angiography of the left coronary system. The left main is a normal size vessel with 10% in the midsection. The LAD is a relatively tortuous vessel with one major diagonal off of it and 10-20% diffuse disease throughout. The left circumflex is a dominant vessel. It gives off three major obtuse marginals including the posterior descending artery. In the midportion of the left circumflex there is a 20% stenosis but otherwise no significant disease throughout it. The first major obtuse marginal has a superior and inferior bifurcation with the inferior having an 80% stenosis. It was felt that the distal portion of this vessel supplies a large area of myocardium and should be intervened upon. The JL3.5 was then exchanged for an EBU 3.5 guide catheter. This is felt to be too large for her aortic root and this was exchanged for an XB 3.0. This was used to engage the left main artery. Heparin was used for an anticoagulant. A BMW wire was then advanced down the first obtuse marginal into the inferior takeoff from the bifurcation. A compliant balloon (2 x 10) was advanced and inflated over the lesion. This was then removed and exchanged for a Resolute drug-eluting stent (2.25 x 14) and inflated to nominal pressure. The midportion of the stent still had somewhat of a divot from the lesion and a noncompliant balloon (2.25 x 8) was advanced to the distal portion and inflated twice to cover the length of the stent. The patient was given 200 mcg of intracoronary nitroglycerin at this time. The balloon was then removed and the wire was pulled back. Final shots show a well-expanded stent with no dissections noted. The wire was then removed as well as the XB guide catheter. A TR band was placed over the radial sheath, removal of radial sheath and hemostasis of the radial arteriotomy. The patient was given 180 mg of Brilinta and left the catheterization lab cardiovascularly stable. IMPRESSIONS 1. Non-ST elevation myocardial infarction. 2. Hypertensive emergency. 3. Significant coronary artery disease with an 80% lesion in the obtuse marginal status post Resolute drug-eluting stent (2.25 x 14). RECOMMENDATIONS 1. Annalee will be placed on aspirin, Brilinta, statin therapy, beta-meena therapy and GALI inhibitor therapy as possible. 2. Will get a 2-D echo to look at her overall left ventricular function, cardiac structure and possible valvulopathies. 3. She will be started on multiple medications to try to help with her blood pressure and we will attempt to wean off her nitroglycerin as possible. 4. I explained to her the importance of continuing her medical regimen, specifically her dual-antiplatelet therapy and antihypertensive medications; her and her understand. 5. Further recommendations will be made during the hospital course. Thank you for allowing me to see Annalee Oli. If there are any questions, please do not hesitate to call. Jasvir NIEVES/HAYLIE /12:13 PM /12:31 PM
--- NOTE | 2016-10-31 12:58 | EKG ---
Date Performed: 10/30/2016 Time Performed: 22:17:24 PTAGE: 66 years EKG: SINUS BRADYCARDIA WITH SINUS ARRHYTHMIA POSSIBLE LEFT ATRIAL ENLARGEMENT MARKED LEFT AXIS D EVIATION INCOMPLETE RIGHT BUNDLE BRANCH BLOCK LEFT VENTRICULAR HYPERTROPHY AND ST-T CHANGE ABNORMAL E CG PREVIOUS TRACING : 10/30/2016 19.15 Since previous tracing, no significant change noted DOCTOR: Link Hills Interpretating Date/Time 10/31/2016 12:55:49
--- NOTE | 2016-10-31 12:58 | EKG ---
Date Performed: 10/31/2016 Time Performed: 08:11:46 PTAGE: 66 years EKG: Sinus rhythm POSSIBLE LEFT ATRIAL ENLARGEMENT MARKED LEFT AXIS DEVIATION LEFT VENTRICULAR HYPERTROPHY AND ST-T CH TIMUR ABNORMAL ECG PREVIOUS TRACING : 10/30/2016 22.17 Since previous tracing, no significant change noted DOCTOR: Link Hills Interpretating Date/Time 10/31/2016 12:55:57
--- NOTE | 2016-10-31 13:05 | EKG ---
Date Performed: 10/30/2016 Time Performed: 19:15:52 PTAGE: 66 years EKG: SINUS BRADYCARDIA WITH SINUS ARRHYTHMIA POSSIBLE LEFT ATRIAL ENLARGEMENT BORDERLINE LEFT AX IS DEVIATION POSSIBLE RIGHT VENTRICULAR CONDUCTION DELAY LEFT VENTRICULAR HYPERTROPHY AND ST-T CHANGE T WAVE INVERSION IN V3 THROUGH V6 IS NEW SINCE PRIOR TRACING, CANNOT RULE OUT ACUTE ISCHEMIA. CLINI MESFIN CORRELATION RECOMMENDED. ABNORMAL ECG PREVIOUS TRACING : 10/30/2016 15.59 DOCTOR: Link Hills Interpretating Date/Time 10/31/2016 13:04:32
--- NOTE | 2016-10-31 13:05 | EKG ---
Date Performed: 10/30/2016 Time Performed: 15:59:41 PTAGE: 66 years EKG: Sinus rhythm POSSIBLE LEFT ATRIAL ENLARGEMENT INCOMPLETE RIGHT BUNDLE BRANCH BLOCK LEFT VENTRICULAR HYPERTROPHY A ND ST-T CHANGE CLINICAL CORRELATION RECOMMENDED ABNORMAL ECG NO PREVIOUS TRACING DOCTOR: Link Hills Interpretating Date/Time 10/31/2016 13:03:44
[2016-10-31 14:18] LABS: HEMOGLOBIN A1a 1.5 %; HEMOGLOBIN A1b 1.9 %; HEMOGLOBIN Ao 84.6 %; HEMOGLOBIN LA1C 1.8 %; HEMOGLOBIN P3 3.8 %
[2016-10-31] MEDS ORDERED: hydrALAZINE HCL 20 MG/ML VIAL ONE (15:57)
[2016-10-31] MEDS ORDERED: hydrALAZINE HCL 20 MG/ML VIAL IV PUSH PRN (16:00)
[2016-10-31] MEDS: PANTOPRAZOLE SODIUM 40 MG VIAL IV PUSH SCH (19:49)
[2016-10-31] MEDS: HEPARIN SODIUM - SQ 10,000 UNITS/ML VIAL SQ SCH (19:49)
[2016-10-31] MEDS: TICAGRELOR 90 MG TAB PO SCH (19:50)
[2016-10-31] MEDS: SODIUM CHLORIDE 0.9% FLUSH 5 ML FLUSH IVF SCH (19:50)
--- NOTE | 2016-10-31 20:02 | EC ---
Study Study Date:10/31/2016 STUDY CONCLUSIONS SUMMARY LEFT VENTRICLE: The cavity size was normal. Wall thickness was increased in a pattern of moderate LVH. There was concentric hypertrophy. Systolic function was normal. The estimated ejection fraction was in the range of 65% to 70%. Wall motion was normal; there were no regional wall motion abnormalities. If LV function is below 40, please consider prescribing an ACEI or ARB or document rationale for non-use. PROCEDURE DATA STUDY STATUS: Elective. Procedure: Transthoracic echocardiography. Image quality was good. Scanning was performed from the parasternal, apical, and subcostal acoustic windows. Study completion: The patient tolerated the procedure well. Transthoracic echocardiography. M-mode, complete 2D, complete spectral Doppler, and color Doppler. Patient status: Inpatient. CARDIAC ANATOMY LEFT VENTRICLE: The cavity size was normal. Wall thickness was increased in a pattern of moderate LVH. There was concentric hypertrophy. Systolic function was normal. The estimated ejection fraction was in the range of 65% to 70%. Wall motion was normal; there were no regional wall motion abnormalities. AORTIC VALVE: The valve appears to be grossly normal. Doppler: There was no stenosis. No significant regurgitation. MITRAL VALVE: The valve appears to be grossly normal. Doppler: There was no evidence for stenosis. Trace regurgitation. PULMONIC VALVE: Not well visualized. Doppler: There was no evidence for stenosis. No significant regurgitation. TRICUSPID VALVE: The valve appears to be grossly normal. Doppler: There was no evidence for stenosis. Trace regurgitation. PERICARDIUM: There was no pericardial effusion. BASIC MEASUREMENTS ADULT NORMAL Left ventricle LV internal dimension, ED, chordal level, *31.6 mm 43-52 PLAX LV internal dimension, ES, chordal level, 24 mm 23-38 PLAX Fractional shortening, chordal level, PLAX *24 % >29 LV posterior wall thickness, ED 19.9 mm IVS/LVPW ratio, ED 0.93 <1.3 Ventricular septum Septal thickness, ED 18.6 mm Aortic valve Leaflet separation 17 mm 15-26 Right ventricle RV internal dimension, ED, PLAX 22 mm 19-38 BASIC MEASUREMENTS ADULT NORMAL Aortic valve Leaflet separation 17 mm 15-26 Aorta Root diameter, ED 32 mm 20-37 Left atrium Anterior-posterior dimension, ES 39 mm 19-40 LA/aortic root ratio 1.22 LEGEND: Mean values are shown as u=mean value. Asterisk (*) subramanian values outside specified normal range. Prepared and signed by Jasvir Corrales [id number]
[2016-10-31] MEDS ORDERED: ATORVASTATIN 80 MG TAB PO SCH (21:00)
[2016-10-31] MEDS: LEVOFLOXACIN 750 MG PREMIX INJ 150 ML IV SCH (21:06)
[2016-11-01] VITALS: BP 162/71; PULSE 69; RESP 22; TEMP 98; O2SAT 96
[2016-11-01 02:00] VITALS: PULSE 56
[2016-11-01 04:00] VITALS: BP 128/59; PULSE 70; RESP 16; TEMP 98; O2SAT 96
[2016-11-01] MEDS: HEPARIN SODIUM - SQ 10,000 UNITS/ML VIAL SQ SCH (04:22)
[2016-11-01 06:00] VITALS: PULSE 68
[2016-11-01 07:34] LABS: AUTOMATED NEUTROPHIL # 5.2 TH/MM3 (1.8-7.7); BASOPHIL % 0.5 % (0.0-2.0); EOSINOPHIL % 0.7 % (0.0-4.0); HEMATOCRIT 33.8 % (35.0-46.0); LYMPHOCYTE # 1.2 TH/MM3 (1.0-4.8); MEAN CELL VOLUME 75.5 FL (80.0-100.0); MEAN CORPUSCULAR HEMOGLOBIN 24.3 PG (27.0-34.0); MEAN CORPUSCULAR HGB CONC 32.2 % (32.0-36.0); MONO % 9.1 % (0.0-8.0); NEUT % 72.7 % (16.0-70.0); PLATELET COUNT 176 TH/MM3 (150-450); RED BLOOD COUNT 4.48 MIL/MM3 (4.00-5.30); RED CELL DISTRIBUTION WIDTH 16.1 % (11.6-17.2); WHITE BLOOD COUNT 7.2 TH/MM3 (4.0-11.0)
[2016-11-01 07:37] LABS: HEMO FLAGS AUTO DIFF
[2016-11-01 08:00] VITALS: BP 135/63; PULSE 67; RESP 16; TEMP 98; O2SAT 94
[2016-11-01 08:05] LABS: BICARBONATE 24.2 MEQ/L (21.0-32.0); MAGNESIUM 2.1 MG/DL (1.5-2.5); POTASSIUM 3.2 MEQ/L (3.5-5.1)
--- NOTE | 2016-11-01 08:33 | HHI.PR ---
Subjective Remarks Follow-up CAD, hypertension. The patient states that she feels better today. Denies chest pain or dyspnea. She would like to go home. Objective Vitals Vital Signs Date Time Temp Pulse Resp B/P Pulse Ox O2 Delivery O2 Flow Rate FiO2 11/01/16 06:00 68 11/01/16 04:00 98.0 70 16 128/59 96 11/01/16 04:00 70 11/01/16 02:00 56 11/01/16 00:00 69 11/01/16 00:00 98.0 69 22 162/71 96 10/31/16 22:00 66 10/31/16 20:00 68 10/31/16 20:00 98.2 68 16 161/71 95 10/31/16 18:00 83 10/31/16 16:00 71 10/31/16 16:00 97.7 71 21 183/83 96 10/31/16 14:00 65 10/31/16 12:00 62 10/31/16 12:00 97.6 62 10 174/81 95 10/31/16 10:00 74 I/O 10/31/16 10/31/16 10/31/16 11/01/16 11/01/16 11/01/16 07:00 15:00 23:00 07:00 15:00 23:00 Intake Total 357 ml 284 ml 570 ml 450 ml Output Total 1150 ml 875 ml 500 ml 550 ml Balance -793 ml -591 ml 70 ml -100 ml Intake Oral 450 ml 450 ml IV Total 357 ml 284 ml 120 ml Output Urine Total 1150 ml 875 ml 500 ml 550 ml # Voids 2 3 # Bowel Movements 0 0 Result Diagram: 11/01/16 0630 11/01/16 0630 Imaging Last Impressions Chest X-Ray 10/30/16 1531 Signed Impressions: Service Date/Time: October 16:43 - CONCLUSION: 1. Cardiomegaly with linear scarring or atelectasis at the lung bases. Hiatal hernia. Reginaldo Jones MD Aorta CTA 10/30/16 0000 Signed Impressions: Service Date/Time: October 20:09 - CONCLUSION: 1. The aorta is intact. Atherosclerotic calcifications are seen throughout the arterial system including the coronary arteries. 2. 4.9 cm peripherally calcified mass in the right pelvis likely related to a calcified leiomyoma of the uterus. 3. Area of suspected atelectasis or consolidation at the right lung base adjacent to a Bochdalek type hernia. Hi Hong MD Objective Remarks General: No acute distress. Heart: Regular rate and rhythm. No murmur. Lungs: Clear to auscultation bilaterally. No wheezes, rales, or rhonchi. Breathing is nonlabored. Abdomen: Soft, nontender, nondistended. Extremities: No lower extremity edema. Psych: Alert and oriented. Procedures Cardiac catheterization Urinary Catheter: No Vascular Central Line Catheter: No A/P Problem List: (1) NSTEMI (non-ST elevation myocardial infarction) ICD Code: I21.4 Status: Acute (2) Hypertension ICD Code: I10 Status: Chronic (3) Coronary artery disease ICD Code: I25.10 Status: Chronic Assessment and Plan 1. NSTEMI, coronary artery disease: Appreciate cardiology recommendations. Status post cardiac catheterization with placement of a drug-eluting stent. Continue aspirin, lisinopril, Brilinta, Coreg, Lipitor. Discussed with Dr. Corrales. Patient is cleared for discharge by cardiology. 2. Hypertension: Continue Coreg, Norvasc. 3. GI prophylaxis: Protonix. 4. DVT prophylaxis: SCDs, subcutaneous heparin. Discharge Planning Discharge home in stable condition. Follow-up with PCP and cardiology upon return to [place]. Patient was advised to wait at least 1 more night before traveling back home. She was given instructions regarding exercise. She was advised to lift no more than 10 pounds with her right arm for the next 3 days, otherwise activity as tolerated. Heart healthy diet. Problem Qualifiers (1) Hypertension: Qualified Code: I10 - Essential hypertension Dexter Avilez MD Nov 01, 2016 08:33
[2016-11-01] MEDS: TICAGRELOR 90 MG TAB PO SCH (08:43)
[2016-11-01] MEDS: CARVEDILOL 6.25 MG TAB PO SCH (08:44)
[2016-11-01] MEDS: amLODIPine BESYLATE 5 MG TAB PO SCH (08:44)
[2016-11-01] MEDS: SODIUM CHLORIDE 0.9% FLUSH 5 ML FLUSH IV FLUSH SCH (08:44)
[2016-11-01] MEDS: SODIUM CHLORIDE 0.9% FLUSH 5 ML FLUSH IVF SCH (08:45)
[2016-11-01] MEDS ORDERED: LISI-519 PO (08:53)
[2016-11-01] MEDS ORDERED: ASPI81TA11 PO (08:53)
[2016-11-01] MEDS ORDERED: LIPI80TA PO (08:53)
[2016-11-01] MEDS ORDERED: AMLO5 PO (08:53)
[2016-11-01] MEDS ORDERED: BRIL90TA PO (08:53)
[2016-11-01] MEDS ORDERED: CARV6.25 PO (08:53)
--- NOTE | 2016-11-01 08:53 | HHI.DCPOC ---
Discharge Care Plan Diagnosis: (1) Coronary artery disease (2) Hypertension (3) NSTEMI (non-ST elevation myocardial infarction) (4) Hypokalemia Goals to Promote Your Health * To prevent worsening of your condition and complications * To maintain your health at the optimal level Directions to Meet Your Goals Take your medications as prescribed Follow your dietary instruction Follow activity as directed Keep your appointments as scheduled Take your immunizations and boosters as scheduled If your symptoms worsen call your PCP, if no PCP go to Urgent Care Center or Emergency Room Smoking is Dangerous to Your Health. Avoid second hand smoke Call the 24-hour hour crisis hotline for domestic abuse at Dexter Avilez MD Nov 01, 2016 08:53
--- NOTE | 2016-11-01 08:57 | PD.CARD.PN ---
Subjective Subjective Remarks No chest pain, no shortness of breath Objective Medications Current Medications Medications (Trade) Dose Ordered Sig/Paulina Route Start Time Stop Time Status Last Admin Potassium Chloride 100 ml @ 50 mls/hr Q2H PRN IV 10/30/16 19:15 (KCl 20 Meq Premix Inj) 100 ml @ 50 mls/hr Q2H PRN IV 10/30/16 19:15 Potassium Chloride 40 meq 40 meq UNSCH PRN PO/TUBE 10/30/16 19:15 Potassium Chloride 100 ml @ 25 mls/hr UNSCH PRN IV 10/30/16 19:15 Potassium Chloride 100 ml @ 50 mls/hr Q2H PRN IV 10/30/16 19:15 10/31/16 12:21 (Magnesium Sulfate Inj/NS Inj) 100 ml @ 50 mls/hr UNSCH PRN IV 10/30/16 19:15 Magnesium Oxide 800 mg 800 mg UNSCH PRN PO 10/30/16 19:15 (Magnesium Sulfate Inj/NS Inj) 100 ml @ 50 mls/hr UNSCH PRN IV 10/30/16 19:15 Potassium Phosphate 2000 mg 2,000 mg Q4H PRN PO 10/30/16 19:15 (Sodium Phosphate Inj/NS 250 ml Inj) 250 ml @ 42 mls/hr UNSCH PRN IV 10/30/16 19:15 (KCl 40 Meq/30 ml Liq) 40 meq UNSCH PRN PO/TUBE 10/30/16 19:15 Potassium Phosphate 2000 mg 2,000 mg UNSCH PRN PO/TUBE 10/30/16 19:15 (Potassium Phosphate Inj/NS 250 ml Inj) 260 ml @ 42 mls/hr UNSCH PRN IV 10/30/16 19:15 Pantoprazole Sodium 40 mg 40 mg Q24H IV PUSH 10/30/16 20:00 10/31/16 19:49 (Nitroglycerin-Dextrose Inj) 250 ml @ 0 mls/hr TITRATE IV 10/30/16 19:45 (NS Flush) 2 ml UNSCH PRN IV FLUSH 10/30/16 20:00 (NS Flush) 2 ml BID IV FLUSH 10/30/16 21:00 11/01/16 08:44 (Tylenol) 650 mg Q6H PRN PO 10/30/16 20:00 (Zofran Inj) 4 mg Q6H PRN IV 10/30/16 20:00 Miscellaneous Information 1 Q361D XX 10/30/16 20:00 (Chlorhexidine 2% Cloth) 3 pack Taper DAILY@04 TOP 10/31/16 04:00 10/27/17 03:59 10/31/16 20:34 (Chlorhexidine 2% Cloth) 3 pack UNSCH PRN TOP 10/30/16 20:00 (Morphine Inj) 2 mg Q3H PRN IV PUSH 10/30/16 20:15 Morphine Sulfate 4 mg 4 mg Q3H PRN IV PUSH 10/30/16 20:15 (Levaquin 750 Mg Premix Inj) 150 ml @ 100 mls/hr Q24H IV 10/30/16 22:15 10/31/16 21:06 (Norvasc) 5 mg DAILY PO 10/31/16 06:00 11/01/16 08:44 (Brilinta) 90 mg BID PO 10/31/16 21:00 11/01/16 08:43 (NS Flush) 2 ml UNSCH PRN IVF 10/31/16 12:00 (NS Flush) 2 ml BID IVF 10/31/16 21:00 (Heparin Inj) 5,000 units Q8H SQ 10/31/16 20:00 11/01/16 04:22 (Prinivil) 5 mg DAILY PO 11/01/16 09:00 11/01/16 08:44 (Coreg) 6.25 mg Q12HR PO 10/31/16 13:00 11/01/16 08:44 (Lipitor) 80 mg HS PO 10/31/16 21:00 10/31/16 19:51 (Aspirin Chew) 81 mg DAILY CHEW 11/01/16 09:00 11/01/16 08:43 (Apresoline Inj) 10 mg Q6H PRN IV PUSH 10/31/16 16:00 11/01/16 06:09 (KCl) 40 meq ONCE ONCE PO 11/01/16 09:00 11/01/16 09:01 UNV Vital Signs / I&O Vital Signs Date Time Temp Pulse Resp B/P Pulse Ox O2 Delivery O2 Flow Rate FiO2 11/01/16 06:00 68 11/01/16 04:00 98.0 70 16 128/59 96 11/01/16 04:00 70 11/01/16 02:00 56 11/01/16 00:00 69 11/01/16 00:00 98.0 69 22 162/71 96 10/31/16 22:00 66 10/31/16 20:00 68 10/31/16 20:00 98.2 68 16 161/71 95 10/31/16 18:00 83 10/31/16 16:00 71 10/31/16 16:00 97.7 71 21 183/83 96 10/31/16 14:00 65 10/31/16 12:00 62 10/31/16 12:00 97.6 62 10 174/81 95 10/31/16 10:00 74 I/O 10/31/16 10/31/16 10/31/16 11/01/16 11/01/16 11/01/16 07:00 15:00 23:00 07:00 15:00 23:00 Intake Total 357 ml 284 ml 570 ml 450 ml Output Total 1150 ml 875 ml 500 ml 550 ml Balance -793 ml -591 ml 70 ml -100 ml Intake Oral 450 ml 450 ml IV Total 357 ml 284 ml 120 ml Output Urine Total 1150 ml 875 ml 500 ml 550 ml # Voids 2 3 # Bowel Movements 0 0 Physical Exam GENERAL: NAD, AAOx3 SKIN: Warm and dry. HEAD: Atraumatic. Normocephalic. EYES: Pupils equal and round. No scleral icterus. No injection or drainage. ENT: No nasal bleeding or discharge. Mucous membranes pink and moist. NECK: Trachea midline. No JVD. CARDIOVASCULAR: Regular rate and rhythm. RESPIRATORY: No accessory muscle use. Clear to auscultation. Breath sounds equal bilaterally. GASTROINTESTINAL: Abdomen soft, non-tender, nondistended. Hepatic and splenic margins not palpable. MUSCULOSKELETAL: Extremities without clubbing, cyanosis, or edema. No obvious deformities. Right radial no hematoma, neurovascularly intact distally NEUROLOGICAL: Awake and alert. No obvious cranial nerve deficits. Motor grossly within normal limits. Five out of 5 muscle strength in the arms and legs. Normal speech. PSYCHIATRIC: Appropriate mood and affect; insight and judgment normal. Laboratory Laboratory Tests Test 10/31/16 10/31/16 11/01/16 09:49 12:38 06:30 Activated Partial 33.6 SEC Thromboplast Time Phosphorus Level 2.8 MG/DL 3.3 MG/DL Magnesium Level 2.0 MG/DL 2.1 MG/DL Troponin I 2.40 NG/ML White Blood Count 7.2 TH/MM3 Red Blood Count 4.48 MIL/MM3 Hemoglobin 10.9 GM/DL Hematocrit 33.8 % Mean Corpuscular Volume 75.5 FL Mean Corpuscular Hemoglobin 24.3 PG Mean Corpuscular Hemoglobin 32.2 % Concent Red Cell Distribution Width 16.1 % Platelet Count 176 TH/MM3 Mean Platelet Volume 10.6 FL Neutrophils (%) (Auto) 72.7 % Lymphocytes (%) (Auto) 17.0 % Monocytes (%) (Auto) 9.1 % Eosinophils (%) (Auto) 0.7 % Basophils (%) (Auto) 0.5 % Neutrophils # (Auto) 5.2 TH/MM3 Lymphocytes # (Auto) 1.2 TH/MM3 Monocytes # (Auto) 0.7 TH/MM3 Eosinophils # (Auto) 0.0 TH/MM3 Basophils # (Auto) 0.0 TH/MM3 CBC Comment AUTO DIFF Sodium Level 142 MEQ/L Potassium Level 3.2 MEQ/L Chloride Level 107 MEQ/L Carbon Dioxide Level 24.2 MEQ/L Anion Gap 11 MEQ/L Blood Urea Nitrogen 12 MG/DL Creatinine 0.98 MG/DL Estimat Glomerular Filtration 57 ML/MIN Rate Random Glucose 103 MG/DL Calcium Level 8.6 MG/DL Assessment and Plan Problem List: (1) Malignant hypertension (2) NSTEMI (non-ST elevation myocardial infarction) (3) Coronary artery disease Assessment and Plan 1) NSTEMI s/p MARLA to OM1 2) ASA/Brilinta/Coreg/Norvasc/Lipitor 3) Blood pressure better controlled 4) Cardiovascularly stable for discharge 5) Understands the importance of ASA/Brilinta, will check with insurance how much it will cost and if unable to afford, will have her primary switch to Plavix 6) Will stay in the area one more night before her and her drive home CorralesJasvir Arevalo Nov 01, 2016 08:57
[2016-11-01] MEDS ORDERED: ASPIRIN 81 MG CHEW TAB CHEW SCH (09:00)
[2016-11-01] MEDS ORDERED: POTASSIUM CHLORIDE 20 MEQ CONTROLLED RELEASE TAB PO ONE (09:00)
[2016-11-01] MEDS ORDERED: LISINOPRIL 5 MG TAB PO SCH (09:00)
[2016-11-01 09:18] LABS: SCAN/DIFF AUTO DIFF CONFIRMED
[2016-11-01 10:00] VITALS: PULSE 72
--- NOTE | 2016-11-01 15:14 | EKG ---
Date Performed: 10/31/2016 Time Performed: 20:31:46 PTAGE: 66 years EKG: Sinus rhythm POSSIBLE LEFT ATRIAL ENLARGEMENT BORDERLINE LEFT AXIS DEVIATION INCOMPLETE RIGHT BUNDLE BRANCH BLOCK LEFT VENTRICULAR HYPERTROPHY AND ST-T CHANGE Compared to previous tracing, no significant change ABN ORMAL ECG PREVIOUS TRACING : 10/31/2016 08.11 DOCTOR: Elder Rea Interpretating Date/Time 11/01/2016 15:13:52
== END 2016-11-01 11:45 | disposition home or self-care (01) | DRG 247 ==
LOC: NEPE 15:22 → NEDA 18:03 → NEDH 22:03 → HIMW 22:25
PROVIDERS: ADMIT Family Medicine; ATTEND Family Medicine
PROC: 4A023N7 Measurement of Cardiac Sampling and Pressure, Left Heart, Percutaneous Approach (ICD-10-PCS; 2016-10-31)
PROC: B2111ZZ Fluoroscopy of Multiple Coronary Arteries using Low Osmolar Contrast (ICD-10-PCS; 2016-10-31)
PROC: B2151ZZ Fluoroscopy of Left Heart using Low Osmolar Contrast (ICD-10-PCS; 2016-10-31)
PROC: 027034Z Dilation of Coronary Artery, One Artery with Drug-eluting Intraluminal Device, Percutaneous Approach (ICD-10-PCS; principal; 2016-10-31 11:00)
DX: I21.4 Non-ST elevation (NSTEMI) myocardial infarction (principal); N39.0 Urinary tract infection, site not specified; I16.0 Hypertensive urgency; R16.0 Hepatomegaly, not elsewhere classified; I25.10 Atherosclerotic heart disease of native coronary artery without angina pectoris; I10 Essential (primary) hypertension; E66.9 Obesity, unspecified; Z68.30 Body mass index [BMI] 30.0-30.9, adult; Z87.891 Personal history of nicotine dependence; Z85.820 Personal history of malignant melanoma of skin; K44.9 Diaphragmatic hernia without obstruction or gangrene; E87.6 Hypokalemia; E78.5 Hyperlipidemia, unspecified
CPT/HCPCS: 71010; 71275; 74174; 80048; 80053; 80061; 80307; 81001; 82550; 82552; 83036; 83690; 83735; 83880; 84100; 84443; 84484; 85002; 85025; 85027; 85610; 85730; 87086; 87641; 92928; 93005; 93306; 93458; 96374; 96375; C1725; C1769; C1874; C1887; C1893; C9113; J0360; J1644; J1956; J2250; J3010; J3480; Q9967